=== PATIENT | male | born 1990 | race African-American/Black ===

== ENCOUNTER 2020-07-13 21:45 | Emergency (ER) | payer OTHER ==
[~2020-07-13] VITALS: Ht 177.8 cm; Wt 81.6 kg
--- NOTE | 2020-07-13 21:57 | Emergency Room Report ---
History of Present Illness General Chief Complaint: Overdose Source: Patient Present Illness HPI Tyler Reid brought in from the field for altered mental status. [employer] was called to the scene because patient was agitated. He is not currently on a hold. History is limited secondary to patient's clinical status. 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 Conjunctivae clear. Lids without swelling. Pupils dilated but equally reactive bilaterally . ENT: External nose and ear normal_in_appearance. Oropharynx clear. Head_atraumatic, Moist_oral_mucosa NECK: No JVD. No meningismus. No thyromegaly. Supple. Trachea midline. No C/T/L-spine step-offs RESP: Tachypneic. No chest wall crepitus. Symmetric rise. No stridor. Clear_to_auscultation_No_rales_No_wheezes CARDIAC: Tachycardic and regular rhytm. No_significant pedal edema. ABDOMEN: Soft. Nondistended. Nontender_No_rebound_or_guarding. MSK: Normal muscle tone, without rigidity. Extremities without asymmetric deformity or swelling. SKIN: Warm and dry. No visible cyanosis or pallor. Diaphoretic. No petechia or rashes NEUROLOGIC: Alert, oriented x1. Motor_and_sensation_grossly_intact. No truncal ataxia. Gait_normal Psych: Normal mood and affect, normal judgment and insight - COORDINATION OF CARE Case was discussed with: Patient Any labs and imaging that were ordered were interpreted as part of the medical decision making: Medical Decision Making/Plan: Differential diagnosis includes illicit drug use, agitated delirium, psychosis, delusions, paranoid schizophrenia, drug abuse, drug intoxication, drug overdose, among others. The patient denies any suicide attempt, overdose, or ingestion. He is tachycardic and diaphoretic. Due to danger to staff, patient was restrained chemically. Also required soft restraints. Labs were ordered for evaluation, and results are reassuring with no evidence of occult overdose, or severe metabolic derangement. Cr mildly elevated at 1.9. Also has non specific leukocytosis of 14. Suspect dehydration. UDS is positive for methamphetamines, cocaine, marijuana, BDZ. EKG shows sinus tachycardia with left ventricular hypertrophy. No obvious signs of TCA overdose. The patient was observed for a period of time in the ED with serial neurologic exams. CT head negative. ED intervention included NS 30 cc/kg. Repeat CBC, BMP showed downtrending of Cr to 1.4 and WBC 11. Given additional 1L fluid bolus After serial neurologic exams in the emergency department, the patient remains clinically sober. He has no focal neurologic deficits and was able to ambulate with a steady gait without assistance. 0430 He is now requesting to leave. He is able to tell me his name and where he is. The patients presentation seems to be consistent with agitation / psychosis ---now resolved Patient counseled to stop doing drugs Pertinent results reviewed with the patient. I educated the patient on the current treatment plan including the risks, benefits, and alternatives. I also discussed the extent and limitations of the current evaluation. The patient expressed understanding and agreement with plan. I recommended PMD follow-up within 1-2 days. Also advised that the patient return to the Emergency Department as soon as possible if they experience any new, persistent, or worsening symptoms. 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 Time is exclusive of separately billable procedures. Time includes: direct patient care, continuous monitoring and multiple patient reassessment, coordination of patient care, review of patient's medical records, medical consultation, family consultation regarding treatment decisions and documentation of patient care. Medical Decision Making Diagnostic Impression: Primary Impression: Drug overdose Additional Impressions: Methamphetamine abuse Cocaine abuse Marijuana abuse Dehydration AMS (altered mental status) NICO (acute kidney injury) EKG Diagnostic Results MONI Warner 12-lead EKG (interpreted by me) Time: 2143 Indication: Rhythm analysis Tracing visualized and Interpreted by me. Rhythm: Sinus tachycardia Rate: 116 bpm QTc: 475 Morphology: No_significant_ST_elevations_or_depressions, No STEMI Impression: Tachycardia, biatrial enlargement, left ventricular hypertrophy Rhythm Strip Diag. Results Rhythm Strip Time: 02:06 EP Interpretation: yes Rate: 95 Rhythm: NSR, no PVC's, no ectopy CT/MRI/US Diagnostic Results CT/MRI/US Diagnostic Results : Impression CT head no contrast Indication: AMS No ICH. 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 Stop doing meth, marijuana and cocaine as it is bad for your health. Follow-up with your doctor sooner if your condition requires a more timely clinical reevaluation. Return to the emergency department immediately if you feel that your condition is worsening or if you have any new or concerning symptoms. Review your discharge instructions and take any prescriptions given as instructed. [facility] PROVIDES FREE OR LOW-COST HEALTH SERVICES TO PEOPLE WHO CAN SHOW PROOF THAT THEY LIVE IN [facility]. TO FIND MORE CLINICS PARTNERED WITH [facility] TO PROVIDE SERVICE, PLEASE CALL . Nita Adams D.O. Jul 13, 2020 21:57
[2020-07-13 22:12] LABS: HEMATOCRIT 47.7 % (42.0-52.0); MEAN CORPUSCULAR VOLUME 90 FL (80-99); PLATELET COUNT 186 K/UL (150-450); RED BLOOD COUNT 5.28 M/UL (4.70-6.10); WHITE BLOOD COUNT 14.2 K/UL (4.8-10.8)
[2020-07-13 22:14] LABS: ANION GAP 9 mmol/L (5-15); BLOOD UREA NITROGEN 20 mg/dL (7-18); CALCIUM 10.5 MG/DL (8.5-10.1); CARBON DIOXIDE 29 MMOL/L (21-32); CHLORIDE 105 MMOL/L (98-107); CREATININE 1.9 MG/DL (0.55-1.30); POTASSIUM 4.7 MMOL/L (3.5-5.1); SODIUM 143 MMOL/L (136-145)
[2020-07-13 22:15] VITALS: BP 124/78
[2020-07-13 22:19] LABS: ALANINE AMINOTRANSFERASE 70 U/L (12-78); ALBUMIN 4.1 G/DL (3.4-5.0); ALBUMIN/GLOBULIN RATIO 0.9 (1.0-2.7); ALKALINE PHOSPHATASE 84 U/L (46-116); ASPARTATE AMINO TRANSFERASE 53 U/L (15-37); BILIRUBIN,TOTAL 0.3 MG/DL (0.2-1.0)
[2020-07-13] MEDS ORDERED: Haloperidol 5mg/ml Inj IM ONE (22:30)
[2020-07-13] MEDS ORDERED: LORazepam Inj 2mg/ml 1ml ONE (22:31)
[2020-07-13] MEDS ORDERED: DiphenhydrAMINE 50mg/ml Inj ONE (22:34)
[2020-07-13] MEDS ORDERED: LORazepam Inj 2mg/ml 1ml IV ONE (22:45)
[2020-07-13] MEDS ORDERED: DiphenhydrAMINE 50mg/ml Inj IVP ONE (22:45)
[2020-07-14] VITALS: BP 121/84
--- NOTE | 2020-07-14 00:38 | Diagnostic Imaging Report ---
EXAM: CT Head Without Intravenous Contrast CLINICAL HISTORY: AMS TECHNIQUE: Axial computed tomography images of the head/brain without intravenous contrast. CTDI is 53.16828 mGy and DLP is 1179.10 mGy-cm. One or more of the following dose reduction techniques were used: automated exposure control, adjustment of the mA and/or kV according to patient size, use of iterative reconstruction technique. COMPARISON: No relevant prior studies available. FINDINGS: Brain: No acute infarct, hemorrhage, mass or edema. Ventricles: Unremarkable. No ventriculomegaly. Bones/joints: Unremarkable. No acute calvarial fracture. Soft tissues: Unremarkable. Sinuses: Minimal mucosal thickening of the paranasal sinuses. Mastoid air cells: Unremarkable as visualized. IMPRESSION: No acute infarct, hemorrhage, mass or edema.
[2020-07-14 02:00] VITALS: BP 134/87
[2020-07-14 02:08] LABS: HEMATOCRIT 42.8 % (42.0-52.0); HEMOGLOBIN 13.9 G/DL (14.2-18.0); MEAN CORPUSCULAR VOLUME 87 FL (80-99); PLATELET COUNT 167 K/UL (150-450); RED BLOOD COUNT 4.94 M/UL (4.70-6.10); RED CELL DISTRIBUTION WIDTH 12.9 % (11.6-14.8); WHITE BLOOD COUNT 11.8 K/UL (4.8-10.8)
[2020-07-14 02:15] LABS: ANION GAP 6 mmol/L (5-15); BLOOD UREA NITROGEN 20 mg/dL (7-18); CALCIUM 8.9 MG/DL (8.5-10.1); CARBON DIOXIDE 27 MMOL/L (21-32); CHLORIDE 109 MMOL/L (98-107); CREATININE 1.4 MG/DL (0.55-1.30); POTASSIUM 4.9 MMOL/L (3.5-5.1); SODIUM 142 MMOL/L (136-145)
[2020-07-14 04:00] VITALS: BP 118/76
[2020-07-14 05:08] VITALS: BP 127/85
== END 2020-07-14 05:05 | disposition home or self-care (01) ==
LOC: EDBD 21:45 → EMR 21:55
DX: T50.901A Poisoning by unspecified drugs, medicaments and biological substances, accidental (unintentional), initial encounter (principal); Y92.9 Unspecified place or not applicable; F15.10 Other stimulant abuse, uncomplicated; F14.10 Cocaine abuse, uncomplicated; F12.10 Cannabis abuse, uncomplicated; E86.0 Dehydration; N17.9 Acute kidney failure, unspecified; R00.0 Tachycardia, unspecified; I51.7 Cardiomegaly; D72.829 Elevated white blood cell count, unspecified
CPT/HCPCS: 36415; 70450; 80048; 80053; 80307; 85007; 85025; 96361; 96372; 96374; 96375; G0480; G0481; J1200; J1630; J7030; Z7502; 99291